=== PATIENT | male | born 1940 | race Caucasian/White ===

== ENCOUNTER 2016-12-04 19:41 | Emergency (ER) | payer OTHER ==
[~2016-12-04] VITALS: Ht 167.6 cm; Wt 79.4 kg
[2016-12-04 21:05] LABS: Basophils # (auto) 0.1 uL; Basophils % (auto) 0.8 % (0.0-2.0); Eosinophils # (auto) 0 uL; Hemoglobin 14.8 g/dL (13.5-17.5); Lymphocytes # (auto) 2.1 uL; Lymphocytes % (auto) 26.1 % (10.0-50.0); Mean Corpuscular Hemoglobin 31.1 pg (28.0-32.0); Mean Corpuscular Hgb Conc. 33.5 g/dL (32.0-36.0); Mean Corpuscular Volume 92.7 fL (80.0-100.0); Mean Platelet Volume 7.8 fL (7.4-10.4); Monocytes # (auto) 0.7 uL; Monocytes % (auto) 9.2 % (0.0-12.0); Neutrophils % (auto) 63.9 % (37.0-80.0); Platelet Count (auto) 269 10^3/uL (140-450); Red Cell Distribution Width 13.9 % (11.6-16.0); White Blood Cell 7.9 10^3/uL (4.4-10.8)
[2016-12-04 21:20] LABS: BUN/Creatinine Ratio 16.8; Bilirubin, Total 0.2 mg/dL (0.2-1.0); Calcium 9.1 mg/dL (8.5-10.1); Magnesium 2.4 mg/dL (1.6-2.6); Potassium 4.1 mmol/L (3.5-5.1); Total Protein 7.6 g/dL (6.4-8.2)
[2016-12-04 21:21] LABS: B-Type Natriuretic Peptide 82.67 pg/mL (0-100)
[2016-12-04 21:31] LABS: Temperature: 23.7 C (20.0-25.0)
[2016-12-04] MEDS ORDERED: ASPirin 81 mg TAB PO ONE (21:45)
[2016-12-04] MEDS ORDERED: ENOXAPARIN SOD 80 MG/0.8ML SYRINGE SC ONE (21:45)
[2016-12-04 22:13] LABS: INR 0.96 (0.9-1.15); Partial Thromboplastin Time 28.5 sec (22.64-33.71); Prothrombin Time 10.4 sec (9.37-12.3)
[2016-12-04] MEDS ORDERED: cloNIDine HCL 0.1 MG TAB PO ONE (22:30)
[2016-12-04 23:14] LABS: Urine RBC None Seen /hpf (0 - 3)
[2016-12-04 23:28] LABS: Urine Bilirubin Negative (Negative); Urine Blood Negative /uL (Negative); Urine Color Yellow (Yellow); Urine Glucose Normal (Normal); Urine Ketone Negative (Negative); Urine Nitrite Negative (Negative); Urine Squamous Epithelial Cell FEW /hpf (<5); Urine Urobilinogen Normal (Negative); Urine pH 5.5 (5.0-8.0)
[2016-12-05 02:05] VITALS: BP 141/85
== END 2016-12-05 02:31 | disposition short-term general hospital (02) ==
LOC: ER 19:41
DX: R07.9 Chest pain, unspecified (principal); R68.84 Jaw pain; I48.91 Unspecified atrial fibrillation; I25.2 Old myocardial infarction; Z85.46 Personal history of malignant neoplasm of prostate; Z87.891 Personal history of nicotine dependence
CPT/HCPCS: 36415; 71010; 80053; 81001; 83735; 83880; 84484; 85025; 85379; 85610; 85730; 96372; 99285; J1650

== ENCOUNTER 2023-05-08 11:19 | Inpatient (IN) | payer OTHER ==
[~2023-05-08] VITALS: Ht 167.6 cm; Wt 77.2 kg
[2023-05-08 11:46] LABS: Basophils # (auto) 0.1 10 ^3/uL (0-0.2); Basophils % (auto) 1.1 % (0.0-2.0); Eosinophils # (auto) 0.1 10 ^3/uL (0-0.8); Eosinophils % (auto) 0.9 % (0.0-7.0); Hemoglobin 15.1 g/dL (13.5-17.5); Lymphocytes # (auto) 2.1 10 ^3/uL (0.4-5.4); Lymphocytes % (auto) 28.6 % (10.0-50.0); Mean Corpuscular Hemoglobin 31.3 pg (28.0-32.0); Mean Corpuscular Hgb Conc. 32.9 g/dL (32.0-36.0); Mean Corpuscular Volume 95.2 fL (80.0-100.0); Monocytes # (auto) 0.6 10 ^3/uL (0-1.3); Neutrophils # (auto) 4.4 10 ^3/uL (1.6-8.6); Neutrophils % (auto) 60.4 % (37.0-80.0); Nucleated Red Blood Cells % 0.1 %; Red Blood Cells 4.84 10^6/uL (4.5-5.90); Red Cell Distribution Width 14.6 % (11.8-14.3); White Blood Cell 7.2 10^3/uL (4.4-10.8)
[2023-05-08 11:59] LABS: Alanine Aminotransferase 18 U/L (7-40); Albumin 4.2 g/dL (3.2-4.8); Alkaline Phosphatase 134 U/L (46-116); Anion Gap 6.8 (5-15); Aspartate Aminotransferase 13 U/L (13-40); Bilirubin, Total 0.7 mg/dL (0.2-1.0); Blood Urea Nitrogen 12 mg/dL (9-23); Calcium 9.6 mg/dL (8.5-10.1); Carbon Dioxide 27.2 mmol/L (20-30); Chloride 109 mmol/L (98-107); Glucose 111 mg/dL (74-106); Potassium 4.2 mmol/L (3.5-5.1); Sodium 143 mmol/L (136-145); Total Protein 6.5 g/dL (5.7-8.2)
[2023-05-08] MEDS ORDERED: PANTOPRAZOLE 40 MG/10 ML VIAL INJ IV ONE (12:00)
[2023-05-08] MEDS ORDERED: ONDANSETRON HCL 4 MG/2 ML VIAL IV ONE (12:00)
[2023-05-08] MEDS ORDERED: dilTIAZem 25 MG/5 ML VIAL IV ONE (12:00)
[2023-05-08] MEDS ORDERED: ASPirin 81 mg TAB PO ONE ×2 (12:00→16:00)
[2023-05-08] MEDS ORDERED: SODIUM CHLORIDE 0.9% 1,000 ML IV ONE (12:00)
[2023-05-08] MEDS ORDERED: MORPHINE SULFATE 4 MG/ML SYR/VIAL IV ONE ×2 (12:00→13:45)
[2023-05-08 12:57] LABS: INR 1.09 (0.9-1.15); Partial Thromboplastin Time 28.8 SEC (24.5-34.5); Prothrombin Time 11.4 sec (9.3-11.8)
[2023-05-08] MEDS ORDERED: DIGOXIN (250MCG/ML) 2 ML AMPULE IV ONE (13:45)
[2023-05-08] MEDS ORDERED: DABI1CAP PO (14:05)
[2023-05-08] MEDS ORDERED: ENOXAPARIN SOD 100 MG/1 ML SYRINGE SC ONE (14:15)
[2023-05-08] MEDS ORDERED: NITROGLYCERIN 0.2MG/HR TOPICAL PATCH TD ONE (16:00)
[2023-05-08] MEDS ORDERED: ATORVASTATIN 20 MG TAB PO ONE (16:00)
[2023-05-08 16:15] LABS: Triglycerides 106 mg/dL (< 150)
[2023-05-08 16:16] LABS: LDL Cholesterol 96 mg/dL (< 100)
[2023-05-08 16:17] LABS: Cholesterol 176 mg/dL (< 200); HDL Cholesterol 65 mg/dL (40-59)
[2023-05-08] MEDS ORDERED: VERAPAMIL 2.5MG/ML INJ 2ML VIAL IV ONE (17:16)
[2023-05-08] MEDS ORDERED: ANGIOMAX 250 MG VIAL IV ONE (17:16)
[2023-05-08] MEDS ORDERED: fentaNYL CITRATE 100 MCG/2 ML VL ONE (17:16)
[2023-05-08] MEDS ORDERED: MIDAZOLAM HCL 2MG/2ML 2ml VIAL (1mg/ml) ONE (17:17)
[2023-05-08] MEDS ORDERED: SODIUM CHL 0.9% 50 ML ONE (17:17)
[2023-05-08 17:29] VITALS: PULSE 119; RESP 12; O2SAT 94
[2023-05-08] MEDS ORDERED: HYDROcodone-ACET 5/325MG TAB PO PRN (17:45)
[2023-05-08] MEDS ORDERED: SODIUM CHLORIDE 0.9% 1,000 ML IV SCH (17:45)
[2023-05-08] MEDS ORDERED: NITROGLYCERIN 0.4 MG SL TAB SL PRN ×2 (17:45→20:00)
[2023-05-08] MEDS ORDERED: MORPHINE SULFATE INJ 2 MG/ml SYRG IV PRN ×2 (17:45→20:00)
[2023-05-08] MEDS ORDERED: ACETAMINOPHEN 325 MG TAB PO PRN (17:45)
[2023-05-08 18:15] LABS: Urine Bacteria NONE SEEN /hpf (None Seen); Urine Blood Negative /uL (Negative); Urine Clarity Clear (Clear); Urine Color Yellow (Yellow); Urine Hyaline Cast FEW /lpf (0 - 2); Urine Mucus FEW (None Seen); Urine Protein, UAD Negative (Negative); Urine Specific Gravity 1.018 (1.001-1.035); Urine Urobilinogen Normal (Negative); Urine WBC 1 /hpf (0 - 3)
[2023-05-08] MEDS ORDERED: IODIXANOL 320MG/ML 100ML BTL IV ONE ×2 (18:15→19:17)
[2023-05-08] MEDS ORDERED: LIDOCAINE 2%HCL (LOCAL ANESTH.) INJ 20ML MDV ONE (18:15)
[2023-05-08] MEDS ORDERED: ATROPINE SULF 1 MG/10ml SYR ONE (18:56)
[2023-05-08] MEDS ORDERED: CLOPIDOGREL 300 MG TAB ONE (19:20)
[2023-05-08] MEDS ORDERED: ONDANSETRON HCL 4 MG/2 ML VIAL IV PRN (21:00)
[2023-05-08 21:08] VITALS: PULSE 98; RESP 19; O2SAT 95
[2023-05-08 22:00] VITALS: BP 138/92; PULSE 98; RESP 19; TEMP 97.9; O2SAT 95
[2023-05-08] MEDS ORDERED: METOPROLOL TARTRATE 25 MG TAB PO SCH (22:00)
[2023-05-08] MEDS ORDERED: ATORVASTATIN 20 MG TAB PO SCH ×2 (22:00)
[2023-05-09] VITALS (10 sets, daily range): BP systolic 85–115; BP diastolic 50–70; PULSE 87–101; RESP 18–20; TEMP 37.1; O2SAT 95–96
[2023-05-09] MEDS ORDERED: SOD CHL 0.45% 1,000 ML IV SCH (05:45)
[2023-05-09] MEDS ORDERED: SOD CHL 0.45% 500 ML IV ONE (06:00)
[2023-05-09 06:46] LABS: Basophils # (auto) 0 10 ^3/uL (0-0.2); Basophils % (auto) 0.5 % (0.0-2.0); Eosinophils # (auto) 0 10 ^3/uL (0-0.8); Eosinophils % (auto) 0.1 % (0.0-7.0); Hematocrit 38.8 % (41.0-53.0); Hemoglobin 12.6 g/dL (13.5-17.5); Lymphocytes # (auto) 1.2 10 ^3/uL (0.4-5.4); Lymphocytes % (auto) 13.9 % (10.0-50.0); Mean Corpuscular Hemoglobin 31.1 pg (28.0-32.0); Mean Corpuscular Hgb Conc. 32.5 g/dL (32.0-36.0); Mean Corpuscular Volume 95.8 fL (80.0-100.0); Monocytes # (auto) 0.9 10 ^3/uL (0-1.3); Neutrophils # (auto) 6.6 10 ^3/uL (1.6-8.6); Neutrophils % (auto) 75.5 % (37.0-80.0); Red Blood Cells 4.05 10^6/uL (4.5-5.90); Red Cell Distribution Width 14.6 % (11.8-14.3); White Blood Cell 8.8 10^3/uL (4.4-10.8)
[2023-05-09 08:45] LABS: Alanine Aminotransferase 22 U/L (7-40); Albumin 3.4 g/dL (3.2-4.8); Alkaline Phosphatase 102 U/L (46-116); Anion Gap 9.4 (5-15); BUN/Creatinine Ratio 18.7 (10.0-20.0); Blood Urea Nitrogen 17 mg/dL (9-23); Carbon Dioxide 23.6 mmol/L (20-30); Chloride 108 mmol/L (98-107); Glucose 112 mg/dL (74-106); Potassium 4.4 mmol/L (3.5-5.1); Sodium 141 mmol/L (136-145)
[2023-05-09 08:46] LABS: Aspartate Aminotransferase 115 U/L (13-40); Bilirubin, Total 0.5 mg/dL (0.2-1.0); Total Protein 5.3 g/dL (5.7-8.2)
[2023-05-09] MEDS ORDERED: NITROGLYCERIN 0.4 MG SL TAB SL ONE (10:00)
[2023-05-09] MEDS ORDERED: ASPirin 81 mg TAB PO SCH (10:00)
[2023-05-09] MEDS ORDERED: METOPROLOL SUCCINATE XL 50 MG TAB PO SCH (10:00)
[2023-05-09] MEDS ORDERED: CLOPIDOGREL BISULFATE 75 MG TAB PO SCH (10:00)
[2023-05-09] MEDS ORDERED: CLOP75TA70 PO (13:07)
[2023-05-09] MEDS ORDERED: ASPI-325 PO (13:07)
[2023-05-09] MEDS ORDERED: MET25T PO (13:07)
[2023-05-09] MEDS ORDERED: ATO40T PO (13:07)
[2023-05-16] MEDS ORDERED: AMIO200T13 PO (12:09)
== END 2023-05-09 16:20 | disposition home or self-care (01) | DRG 247 ==
LOC: ER 11:19 → UNDOADMIN 17:34 → TELE 17:34 → TELE-WESTW 20:20 → TELE 20:20
PROVIDERS: ADMIT Specialist; ATTEND Specialist
PROC: 03HY32Z Insertion of Monitoring Device into Upper Artery, Percutaneous Approach (ICD-10-PCS; principal; 2023-05-08)
PROC: 027035Z Dilation of Coronary Artery, One Artery with Two Drug-eluting Intraluminal Devices, Percutaneous Approach (ICD-10-PCS; 2023-05-08)
PROC: 4A023N7 Measurement of Cardiac Sampling and Pressure, Left Heart, Percutaneous Approach (ICD-10-PCS; 2023-05-08)
PROC: B211YZZ Fluoroscopy of Multiple Coronary Arteries using Other Contrast (ICD-10-PCS; 2023-05-08)
PROC: B215YZZ Fluoroscopy of Left Heart using Other Contrast (ICD-10-PCS; 2023-05-08)
PROC: B240ZZ3 Ultrasonography of Single Coronary Artery, Intravascular (ICD-10-PCS; 2023-05-08)
DX: I21.4 Non-ST elevation (NSTEMI) myocardial infarction (principal); I48.20 Chronic atrial fibrillation, unspecified; M10.9 Gout, unspecified; I10 Essential (primary) hypertension; I45.10 Unspecified right bundle-branch block; I25.2 Old myocardial infarction; Z95.5 Presence of coronary angioplasty implant and graft; Z79.01 Long term (current) use of anticoagulants
CPT/HCPCS: 36415; 71045; 80053; 80061; 80162; 81001; 82962; 83735; 83880; 84443; 84484; 85025; 85610; 85730; 86850; 86900; 86901; 92941; 92978; 93005; 93306; 93458; 99152; C9113; G0378; J2250; J2405; Q9967

== ENCOUNTER 2023-08-03 16:20 | Inpatient (IN) | payer OTHER ==
[~2023-08-03] VITALS: Ht 167.6 cm; Wt 74.0 kg
[~2023-08-03 16:20] MED LIST: AMIO200T13 PO; ASPI-325 PO; ATO40T PO; CLOP75TA70 PO; DABI1CAP PO; MET25T PO
[2023-08-03 18:36] LABS: Basophils # (auto) 0 10 ^3/uL (0-0.2); Basophils % (auto) 0.7 % (0.0-2.0); Eosinophils # (auto) 0 10 ^3/uL (0-0.8); Hematocrit 40.8 % (41.0-53.0); Hemoglobin 13.6 g/dL (13.5-17.5); Lymphocytes # (auto) 0.6 10 ^3/uL (0.4-5.4); Lymphocytes % (auto) 9.2 % (10.0-50.0); Mean Corpuscular Hgb Conc. 33.4 g/dL (32.0-36.0); Mean Corpuscular Volume 95.7 fL (80.0-100.0); Monocytes % (auto) 14.5 % (0.0-12.0); Neutrophils # (auto) 5.2 10 ^3/uL (1.6-8.6); Neutrophils % (auto) 75.6 % (37.0-80.0); Nucleated Red Blood Cells % 0.1 %; Red Blood Cells 4.26 10^6/uL (4.5-5.90); Red Cell Distribution Width 15.3 % (11.8-14.3); White Blood Cell 6.9 10^3/uL (4.4-10.8)
[2023-08-03 18:53] LABS: INR 1.16 (0.9-1.15); Partial Thromboplastin Time 36.2 SEC (24.5-34.5); Prothrombin Time 12.1 sec (9.3-11.8)
[2023-08-03 19:09] LABS: Alanine Aminotransferase 22 U/L (7-40); Albumin 4.5 g/dL (3.2-4.8); Alkaline Phosphatase 132 U/L (46-116); Anion Gap 7 (5-15); Aspartate Aminotransferase 25 U/L (13-40); BUN/Creatinine Ratio 10.1 (10.0-20.0); Bilirubin, Total 0.6 mg/dL (0.2-1.0); Blood Urea Nitrogen 11 mg/dL (9-23); Calcium 9.1 mg/dL (8.7-10.4); Carbon Dioxide 26 mmol/L (20-30); Chloride 100 mmol/L (98-107); Glucose 107 mg/dL (74-106); Potassium 4.2 mmol/L (3.5-5.1); Sodium 133 mmol/L (136-145); Total Protein 6.9 g/dL (5.7-8.2)
[2023-08-03] MEDS ORDERED: IOHEXOL 350 MG/ML 100ML IJ ONE (20:45)
[2023-08-03] MEDS ORDERED: ENOXAPARIN SOD 100 MG/1 ML SYRINGE SC ONE (20:45)
[2023-08-03 22:35] VITALS: PULSE 106; RESP 20; O2SAT 97
[2023-08-03] MEDS ORDERED: ONDANSETRON HCL 4 MG/2 ML VIAL IV PRN (23:00)
[2023-08-03] MEDS ORDERED: NITROGLYCERIN 0.4 MG SL TAB SL PRN (23:00)
[2023-08-03] MEDS ORDERED: ACETAMINOPHEN 325 MG TAB PO PRN (23:00)
[2023-08-03] MEDS ORDERED: MORPHINE SULFATE INJ 2 MG/ml SYRG IV PRN (23:00)
[2023-08-04] VITALS (13 sets, daily range): BP systolic 104–166; BP diastolic 55–102; PULSE 62–109; RESP 16–30; TEMP 98.5–99.5; O2SAT 92–100
[2023-08-04] LABS: Urine Bacteria NONE SEEN /hpf (None Seen); Urine Blood 1+ /uL (Negative); Urine Clarity Clear (Clear); Urine Color Colorless (Yellow); Urine Protein, UAD TRACE (Negative); Urine Specific Gravity 1.049 (1.001-1.035); Urine Urobilinogen Normal (Negative); Urine WBC 2 /hpf (0 - 3); Urine pH 6.5 (5.0-8.0)
[2023-08-04] MEDS ORDERED: dilTIAZem 25 MG/5 ML VIAL IV ONE (03:00)
[2023-08-04] MEDS ORDERED: ALBUTEROL MEDNEB 2.5 mg/3ml NEB NEB PRN (03:30)
[2023-08-04] MEDS: ALBUTEROL MEDNEB 2.5 mg/3ml NEB NEB PRN (03:40)
[2023-08-04] MEDS: cefTRIAXone 1GM/50ML D5W 50 ML IV SCH (09:04)
[2023-08-04] MEDS: CLOPIDOGREL BISULFATE 75 MG TAB PO SCH (09:34)
[2023-08-04] MEDS ORDERED: METOPROLOL TARTRATE 25 MG TAB PO SCH (10:00)
[2023-08-04] MEDS ORDERED: ASPirin 81 mg TAB PO SCH (10:00)
[2023-08-04] MEDS ORDERED: AMIODARONE HCL 200 MG TAB PO SCH (10:00)
[2023-08-04] MEDS ORDERED: dilTIAZem 120MG ER CAP PO ONE (13:15)
[2023-08-04] MEDS ORDERED: APIXABAN 5 MG TAB PO ONE (13:15)
[2023-08-04] MEDS ORDERED: FUROSEMIDE 20 MG/2 ML VIAL IV ONE (14:45)
[2023-08-04] MEDS ORDERED: POTASSIUM CHL 20 Meq TABLET PO ONE (14:45)
[2023-08-04] MEDS ORDERED: methylPREDNISolone SOD SUCC 40 MG/ML VL IV ONE (14:45)
[2023-08-04] MEDS ORDERED: AZITHROMYCIN 250 MG TAB PO ONE (14:45)
[2023-08-04] MEDS: IPRATROPIUM BROM 0.5 MG/2.5ML INH SOL NEB SCH (18:09)
[2023-08-04] MEDS ORDERED: DILT-14 PO (18:36)
[2023-08-04] MEDS: APIXABAN 5 MG TAB PO SCH (21:56)
[2023-08-04] MEDS: ATORVASTATIN 20 MG TAB PO SCH (21:56)
[2023-08-04] MEDS: methylPREDNISolone SOD SUCC 40 MG/ML VL IV SCH (21:57)
[2023-08-04] MEDS ORDERED: ATORVASTATIN 20 MG TAB PO SCH (22:00)
[2023-08-05] VITALS (12 sets, daily range): BP systolic 126–139; BP diastolic 76–91; PULSE 88–112; RESP 14–21; TEMP 97.4–98.7; O2SAT 93–100
[2023-08-05 06:36] LABS: Basophils # (auto) 0 10 ^3/uL (0-0.2); Basophils % (auto) 0.2 % (0.0-2.0); Eosinophils # (auto) 0 10 ^3/uL (0-0.8); Hematocrit 44.2 % (41.0-53.0); Hemoglobin 14.7 g/dL (13.5-17.5); Lymphocytes # (auto) 0.6 10 ^3/uL (0.4-5.4); Lymphocytes % (auto) 13.7 % (10.0-50.0); Mean Corpuscular Hgb Conc. 33.3 g/dL (32.0-36.0); Mean Corpuscular Volume 95.9 fL (80.0-100.0); Monocytes # (auto) 0.2 10 ^3/uL (0-1.3); Monocytes % (auto) 3.9 % (0.0-12.0); Neutrophils # (auto) 3.6 10 ^3/uL (1.6-8.6); Neutrophils % (auto) 82.2 % (37.0-80.0); Nucleated Red Blood Cells % 0.1 %; Red Blood Cells 4.61 10^6/uL (4.5-5.90); Red Cell Distribution Width 15.5 % (11.8-14.3); White Blood Cell 4.4 10^3/uL (4.4-10.8)
[2023-08-05] MEDS: IPRATROPIUM BROM 0.5 MG/2.5ML INH SOL NEB SCH ×3 (06:44→18:40)
[2023-08-05 06:45] LABS: Anion Gap 6 (5-15); Carbon Dioxide 29 mmol/L (20-30); Chloride 102 mmol/L (98-107); Potassium 4.5 mmol/L (3.5-5.1); Sodium 137 mmol/L (136-145)
[2023-08-05 06:46] LABS: Calcium 9.5 mg/dL (8.7-10.4)
[2023-08-05 06:51] LABS: BUN/Creatinine Ratio 16.7 (10.0-20.0); Blood Urea Nitrogen 18 mg/dL (9-23); Glucose 144 mg/dL (74-106)
[2023-08-05] MEDS: cefTRIAXone 1GM/50ML D5W 50 ML IV SCH (09:05)
[2023-08-05] MEDS: CLOPIDOGREL BISULFATE 75 MG TAB PO SCH (09:07)
[2023-08-05] MEDS: APIXABAN 5 MG TAB PO SCH ×2 (09:07→22:18)
[2023-08-05] MEDS: dilTIAZem 120MG ER CAP PO SCH (09:07)
[2023-08-05] MEDS: methylPREDNISolone SOD SUCC 40 MG/ML VL IV SCH ×2 (09:32→22:00)
[2023-08-05] MEDS: AZITHROMYCIN 250 MG TAB PO SCH (09:32)
[2023-08-05] MEDS: ALBUTEROL MEDNEB 2.5 mg/3ml NEB NEB PRN (13:06)
[2023-08-05] MEDS ORDERED: POTASSIUM CHL 10 Meq TABLET PO ONE (14:45)
[2023-08-05] MEDS ORDERED: FUROSEMIDE 20 MG TAB PO ONE (14:45)
[2023-08-05] MEDS ORDERED: ALBUTEROL SULF 2.5 MG/0.5ML(0.5%) NEB SOLN ONE (18:06)
[2023-08-05] MEDS: ATORVASTATIN 20 MG TAB PO SCH (22:18)
[2023-08-06] VITALS (9 sets, daily range): BP systolic 117–141; BP diastolic 68–95; PULSE 71–125; RESP 18–20; TEMP 36.7; O2SAT 94–99
[2023-08-06 06:47] LABS: Anion Gap 10 (5-15); Carbon Dioxide 26 mmol/L (20-30); Chloride 101 mmol/L (98-107); Potassium 4.4 mmol/L (3.5-5.1); Sodium 137 mmol/L (136-145)
[2023-08-06 06:48] LABS: Calcium 10.1 mg/dL (8.5-10.1)
[2023-08-06 06:52] LABS: Glucose 118 mg/dL (74-106)
[2023-08-06 06:53] LABS: BUN/Creatinine Ratio 20.8 (10.0-20.0); Blood Urea Nitrogen 25 mg/dL (9-23)
[2023-08-06] MEDS: IPRATROPIUM BROM 0.5 MG/2.5ML INH SOL NEB SCH ×2 (07:30→12:30)
[2023-08-06] MEDS: cefTRIAXone 1GM/50ML D5W 50 ML IV SCH (09:01)
[2023-08-06] MEDS: APIXABAN 5 MG TAB PO SCH (09:02)
[2023-08-06] MEDS: CLOPIDOGREL BISULFATE 75 MG TAB PO SCH (09:02)
[2023-08-06] MEDS: dilTIAZem 120MG ER CAP PO SCH (09:02)
[2023-08-06] MEDS: methylPREDNISolone SOD SUCC 40 MG/ML VL IV SCH (09:04)
[2023-08-06] MEDS: AZITHROMYCIN 250 MG TAB PO SCH (09:05)
[2023-08-06] MEDS ORDERED: FUROSEMIDE 20 MG TAB PO SCH (10:00)
[2023-08-06] MEDS ORDERED: POTASSIUM CHL 10 Meq TABLET PO SCH (10:00)
[2023-08-06] MEDS ORDERED: FUR20T PO (13:17)
[2023-08-06] MEDS ORDERED: AZIT-74 PO (13:17)
[2023-08-06] MEDS ORDERED: POTA-211 PO (13:17)
[2023-08-06] MEDS ORDERED: PRED20TA2 PO (13:17)
== END 2023-08-06 16:09 | disposition home or self-care (01) | DRG 177 ==
LOC: ER 16:20 → TELE 23:07 → TELE-WESTW 08-04 08:30
PROVIDERS: ADMIT Nurse Practitioner; ATTEND Internal Medicine
DX: J15.69 Pneumonia due to other Gram-negative bacteria (principal); I21.A1 Myocardial infarction type 2; I50.31 Acute diastolic (congestive) heart failure; J96.00 Acute respiratory failure, unspecified whether with hypoxia or hypercapnia; D68.9 Coagulation defect, unspecified; D68.69 Other thrombophilia; J44.1 Chronic obstructive pulmonary disease with (acute) exacerbation; I74.19 Embolism and thrombosis of other parts of aorta; I11.0 Hypertensive heart disease with heart failure; J15.9 Unspecified bacterial pneumonia; I48.91 Unspecified atrial fibrillation; E78.5 Hyperlipidemia, unspecified; I25.10 Atherosclerotic heart disease of native coronary artery without angina pectoris; K21.9 Gastro-esophageal reflux disease without esophagitis; M10.9 Gout, unspecified; I71.40 Abdominal aortic aneurysm, without rupture, unspecified; I25.2 Old myocardial infarction; Z79.01 Long term (current) use of anticoagulants; Z79.02 Long term (current) use of antithrombotics/antiplatelets; Z79.899 Other long term (current) drug therapy; Z80.42 Family history of malignant neoplasm of prostate; Z87.891 Personal history of nicotine dependence; Z95.0 Presence of cardiac pacemaker; Z95.5 Presence of coronary angioplasty implant and graft
CPT/HCPCS: 36415; 71045; 71275; 80048; 80053; 81001; 83605; 83880; 84484; 85025; 85379; 85610; 85730; 87040; 93005; 94640; 99291; G0378; J0696

== ENCOUNTER 2024-01-19 07:02 | Inpatient (IN) | payer OTHER ==
[~2024-01-19] VITALS: Ht 167.6 cm; Wt 73.8 kg
[~2024-01-19 07:02] MED LIST changes: -AMIO200T13 PO; -ASPI-325 PO; -ATO40T PO; +ATOR-507 PO; +AZIT-74 PO; -DABI1CAP PO; +DILT-14 PO; +FUR20T PO; -MET25T PO; +POTA-211 PO; +PRED20TA2 PO
[2024-01-19 07:34] LABS: Basophils # (auto) 0 10 ^3/uL (0-0.2); Basophils % (auto) 0.4 % (0.0-2.0); Eosinophils # (auto) 0.1 10 ^3/uL (0-0.8); Eosinophils % (auto) 0.7 % (0.0-7.0); Hematocrit 44.4 % (41.0-53.0); Lymphocytes # (auto) 1.8 10 ^3/uL (0.4-5.4); Lymphocytes % (auto) 17.6 % (10.0-50.0); Mean Corpuscular Hemoglobin 32.5 pg (28.0-32.0); Mean Corpuscular Hgb Conc. 33.8 g/dL (32.0-36.0); Monocytes # (auto) 1.1 10 ^3/uL (0-1.3); Neutrophils # (auto) 7.3 10 ^3/uL (1.6-8.6); Neutrophils % (auto) 70.3 % (37.0-80.0); Red Blood Cells 4.63 10^6/uL (4.5-5.90); Red Cell Distribution Width 14.1 % (11.8-14.3); White Blood Cell 10.4 10^3/uL (4.4-10.8)
[2024-01-19 07:42] LABS: Anion Gap 4 (5-15); Calcium 9.8 mg/dL (8.5-10.1); Carbon Dioxide 28 mmol/L (20-30); Chloride 106 mmol/L (98-107); Potassium 4.7 mmol/L (3.5-5.1); Sodium 138 mmol/L (136-145)
[2024-01-19 07:47] LABS: Glucose 115 mg/dL (74-106)
[2024-01-19 07:49] LABS: Urine Bacteria None Seen /hpf (None Seen)
[2024-01-19 07:56] LABS: Urine Amorphous Crystal FEW /hpf (None Seen); Urine Blood 1+ /uL (Negative); Urine Clarity Hazy (Clear); Urine Color Light-Yellow (Yellow); Urine Protein, UAD Negative (Negative); Urine Specific Gravity 1.014 (1.001-1.035); Urine Urobilinogen Normal (Negative); Urine WBC 1 /hpf (0 - 3); Urine pH 7.5 (5.0-9.0)
[2024-01-19 08:00] VITALS: PULSE 99; RESP 26; O2SAT 98
[2024-01-19] MEDS: ASPirin 81 mg TAB PO ONE (08:19)
[2024-01-19] MEDS: dilTIAZem 25 MG/5 ML VIAL IV ONE (08:25)
[2024-01-19 08:27] LABS: BUN/Creatinine Ratio 11.3 (10.0-20.0); Blood Urea Nitrogen 12 mg/dL (9-23)
[2024-01-19 08:39] LABS: COVID19 ANTIGEN SOFIA FIA NEGATIVE (NEGATIVE)
[2024-01-19] MEDS ORDERED: ACETAMINOPHEN 325 MG TAB PO PRN (11:45)
[2024-01-19] MEDS ORDERED: MORPHINE SULFATE INJ 2 MG/ml SYRG IV PRN (11:45)
[2024-01-19] MEDS ORDERED: NITROGLYCERIN 0.4 MG SL TAB SL PRN (11:45)
[2024-01-19 13:12] LABS: Triglycerides 66 mg/dL (< 150)
[2024-01-19 13:13] LABS: LDL Cholesterol 46 mg/dL (< 100)
[2024-01-19 13:14] LABS: Cholesterol 121 mg/dL (< 200); HDL Cholesterol 63 mg/dL (40-59)
[2024-01-19] MEDS: CLOPIDOGREL BISULFATE 75 MG TAB PO SCH (13:39)
[2024-01-19] MEDS: FUROSEMIDE 20 MG/2 ML VIAL IV ONE (13:42)
[2024-01-19 16:14] VITALS: PULSE 110
[2024-01-19 16:19] VITALS: PULSE 110; RESP 18; O2SAT 98
[2024-01-19 16:30] VITALS: BP 155/95; PULSE 116; RESP 20; TEMP 98.2; O2SAT 96
[2024-01-19] MEDS: dilTIAZem 120MG ER CAP PO ONE (19:21)
[2024-01-19 20:00] VITALS: BP 149/78; PULSE 100; PULSE 129; RESP 16; RESP 18; TEMP 98.6; O2SAT 96
[2024-01-19 21:00] VITALS: BP 155/94; PULSE 101; RESP 18; TEMP 98.2; O2SAT 95
[2024-01-19] MEDS: ATORVASTATIN 20 MG TAB PO SCH (21:20)
[2024-01-20] VITALS (9 sets, daily range): BP systolic 103–136; BP diastolic 56–85; PULSE 81–116; RESP 16–20; TEMP 97.8–98.6; O2SAT 94–100
[2024-01-20] MEDS: MELATONIN 5 MG TAB PO ONE (02:46)
[2024-01-20 05:41] LABS: Basophils # (auto) 0.1 10 ^3/uL (0-0.2); Basophils % (auto) 0.7 % (0.0-2.0); Eosinophils # (auto) 0.1 10 ^3/uL (0-0.8); Eosinophils % (auto) 0.6 % (0.0-7.0); Hematocrit 43.2 % (41.0-53.0); Hemoglobin 14.5 g/dL (13.5-17.5); Lymphocytes # (auto) 1.4 10 ^3/uL (0.4-5.4); Lymphocytes % (auto) 13.6 % (10.0-50.0); Mean Corpuscular Hemoglobin 31.9 pg (28.0-32.0); Mean Corpuscular Hgb Conc. 33.5 g/dL (32.0-36.0); Mean Corpuscular Volume 95.3 fL (80.0-100.0); Monocytes # (auto) 1.2 10 ^3/uL (0-1.3); Monocytes % (auto) 12.2 % (0.0-12.0); Neutrophils # (auto) 7.4 10 ^3/uL (1.6-8.6); Neutrophils % (auto) 72.9 % (37.0-80.0); Nucleated Red Blood Cells % 0.1 %; Red Blood Cells 4.53 10^6/uL (4.5-5.90); Red Cell Distribution Width 14.1 % (11.8-14.3); White Blood Cell 10.2 10^3/uL (4.4-10.8)
[2024-01-20 05:52] LABS: Alanine Aminotransferase 13 U/L (7-40); Albumin 3.8 g/dL (3.2-4.8); Alkaline Phosphatase 150 U/L (46-116); Anion Gap 7 (5-15); Aspartate Aminotransferase 18 U/L (13-40); Bilirubin, Total 0.8 mg/dL (0.2-1.0); Blood Urea Nitrogen 18 mg/dL (9-23); Carbon Dioxide 27 mmol/L (20-30); Chloride 106 mmol/L (98-107); Glucose 106 mg/dL (74-106); Sodium 140 mmol/L (136-145); Total Protein 6.3 g/dL (5.7-8.2)
[2024-01-20] MEDS: FUROSEMIDE 20 MG/2 ML VIAL IV SCH (09:53)
[2024-01-20] MEDS: dilTIAZem 120MG ER CAP PO SCH (09:55)
[2024-01-20] MEDS: ASPirin 81 mg TAB PO SCH (09:55)
[2024-01-20] MEDS: methylPREDNISolone SOD SUCC 125 MG/2 ML VL IV ONE (11:51)
[2024-01-20] MEDS: DOXYCYCLINE 100MG/250ML 250 ML IV SCH (11:51)
[2024-01-20] MEDS: ENOXAPARIN SOD 100 MG/1 ML SYRINGE SC ONE (16:34)
[2024-01-20] MEDS: COLCHICINE 0.6 MG CAP PO ONE (16:34)
[2024-01-20] MEDS: IPRATROPIUM BROM 0.5 MG/2.5ML INH SOL NEB SCH (19:08)
[2024-01-20] MEDS: methylPREDNISolone SOD SUCC 40 MG/ML VL IV SCH (22:27)
[2024-01-20] MEDS: ALPRAZolam 0.25 MG TAB PO PRN (22:33)
[2024-01-21] VITALS (16 sets, daily range): BP systolic 122–154; BP diastolic 79–92; PULSE 60–114; RESP 16–20; TEMP 98–98.5; O2SAT 93–100
[2024-01-21] MEDS: ENOXAPARIN SOD 100 MG/1 ML SYRINGE SC SCH (06:05)
[2024-01-21] MEDS: COLCHICINE 0.6 MG CAP PO SCH (09:14)
[2024-01-21] MEDS: FUROSEMIDE 20 MG TAB PO SCH (09:15)
[2024-01-21] MEDS: dilTIAZem 120MG ER CAP PO ONE (16:37)
[2024-01-22] VITALS (9 sets, daily range): BP systolic 104–136; BP diastolic 75–87; PULSE 67–107; RESP 17–18; TEMP 97.9–98.2; O2SAT 94–100
[2024-01-22] MEDS: dilTIAZem 120MG ER CAP PO SCH (09:29)
[2024-01-22] MEDS ORDERED: PRED20TA2 PO (14:53)
[2024-01-22] MEDS ORDERED: DOXY-346 PO (14:53)
[2024-01-22] MEDS ORDERED: DILT240C59 PO (14:53)
[2024-01-22] MEDS ORDERED: APIX5TAB PO (14:53)
== END 2024-01-22 18:00 | disposition home or self-care (01) | DRG 308 ==
LOC: ER 07:02 → TELE 11:47 → TELE-WESTW 16:18
PROVIDERS: ADMIT Nurse Practitioner Family; ATTEND Internal Medicine
DX: I48.19 Other persistent atrial fibrillation (principal); J15.69 Pneumonia due to other Gram-negative bacteria; J15.9 Unspecified bacterial pneumonia; J44.1 Chronic obstructive pulmonary disease with (acute) exacerbation; I50.32 Chronic diastolic (congestive) heart failure; I74.10 Embolism and thrombosis of unspecified parts of aorta; J44.0 Chronic obstructive pulmonary disease with (acute) lower respiratory infection; D68.69 Other thrombophilia; E78.5 Hyperlipidemia, unspecified; Z20.822 Contact with and (suspected) exposure to COVID-19; K21.9 Gastro-esophageal reflux disease without esophagitis; M10.9 Gout, unspecified; I25.10 Atherosclerotic heart disease of native coronary artery without angina pectoris; F41.9 Anxiety disorder, unspecified; I11.0 Hypertensive heart disease with heart failure; Z91.148 Patient's other noncompliance with medication regimen for other reason; Z95.5 Presence of coronary angioplasty implant and graft; Z95.0 Presence of cardiac pacemaker; Z87.891 Personal history of nicotine dependence; I25.2 Old myocardial infarction; Z80.42 Family history of malignant neoplasm of prostate; Z79.01 Long term (current) use of anticoagulants; Z91.199 Patient's noncompliance with other medical treatment and regimen due to unspecified reason
CPT/HCPCS: 36415; 71046; 80048; 80053; 80061; 81001; 83735; 83880; 84443; 84484; 85025; 85379; 87426; 93005; 93306; 94640; 96374; 96375; 99291; G0378; J3490